=== PATIENT | female | born 1955 | race Caucasian/White ===

== ENCOUNTER 2025-07-25 18:17 | Emergency (ER) | payer MEDICARE, SELFPAY ==
[2025-07-25 18:21] VITALS: BP 182/114
[2025-07-25 19:02] VITALS: BP 154/97
[2025-07-25 19:05] VITALS: BMI 25.1
[2025-07-25 19:53] LABS: Hematocrit 45.5 % (37.0-47.0); Hemoglobin 15.1 g/dL (12.0-16.0); Mean Corp Hgb Conc. 33.2 g/dL (33.0-37.0); Mean Corpuscular Volume 84.7 fL (81.0-99.0); Nucleated Red Blood Cells % 0 %; Platelet Count 210 10^3/uL (130-400); Red Cell Dist. Width 15.7 % (11.5-14.5)
[2025-07-25 20:00] VITALS: BP 154/77
[2025-07-25 20:06] LABS: Urine Character Clear (Clear)
[2025-07-25 20:11] LABS: Urine Squamous Cell >30 /LPF (Few); Urine White Cell 40-50 /HPF (0-5)
[2025-07-25 20:12] LABS: Urine Red Blood Cell 0-2 /HPF (0-2)
[2025-07-25 20:25] LABS: ALT (SGPT) 42 U/L (0-35); AST (SGOT) 42 U/L (14-36); Albumin 4.2 g/dl (3.5-5.0); Alkaline Phosphatase 105 U/L (38-126); Blood Urea Nitrogen 35 mg/dl (7-17); Calcium 9.4 mg/dl (8.4-10.2); Carbon Dioxide 25 mmol/L (22-30); Chloride 110 mmol/L (98-107); Estimated Creatinine Clearance 43 ml/min; Glucose 99 mg/dl (70-99); Potassium 4.5 mmol/L (3.5-5.1); Sodium 142 mmol/L (135-145); Total Protein 7.2 g/dl (6.3-8.2); eGFR 48.09
[2025-07-25 20:30] VITALS: BP 166/85
[2025-07-25 21:01] VITALS: BP 166/87
[2025-07-25] MEDS: COZAAR 25 MG PO (21:07)
--- NOTE | 2025-07-25 21:50 | ED.GENMED ---
History of Present Illness
General
Chief Complaint: Blood Pressure Problem
Source: patient
Exam Limitations: none
Time Seen by Provider: 07/25/25 18:37
Nursing documentation reviewed up to this point in time: agreed with
History of Present Illness
History of Present Illness:
Patient to ED with report of elevated BP readings for the past few days. States she takes Losartan 25mg daily and is complaint with med. 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
150 or above, she should come to ED. States her systolic has been running 160's-170's. She reports that a few years ago she was diagnosed with Stage III kidney disease but that her kidney functions improved and she has not had any issues until
now. SHe reports swelling to bilateral feet. She denies any cp/pressrue, SOB, cough. Brought self to ED for eval.
Past History
Past History
ED Past Medical History: HTN and Other (ANCA Vasculitis)
Review of Systems
Review of Systems
Allergies reviewed?: Yes
All Other Systems: ROS reviewed and negative except as documented in HPI and ROS
Constitutional: Reports no symptoms
EENT: Reports no symptoms
Respiratory: Reports no symptoms
Cardiac: Reports other (Elevated BP readings)
ABD/GI: Reports no symptoms
: Reports no symptoms
Musculoskeletal: Reports edema (+1 edema bilat feet)
Skin: Reports no symptoms
Neurological: Reports no symptoms
Psychiatric: Reports no symptoms
Phy Exam
General Physical Exam
General Presentation: well appearing and no apparent distress
General age: appears stated age
General Skin: warm and dry
General Habitus: normal
General Mental: alert
Cardiovascular Exam
Cardiovascular Exam: regular rate/rhythm
Pulmonary Exam
Pulmonary Exam: lungs clear and no respiratory distress
Neurological Exam
Neurological Exam: oriented x3, CN II-XII intact, no motor deficits and no sensory deficits
Musculoskeletal Exam
Musculoskeletal Exam: full ROM, edema (+1 edema BLe) and neuro vasc intact
Skin Exam
Skin Exam: normal color, warm/dry and no rash
Psychiatric Exam
Psychiatric Exam: normal mood/affect
Course
Orders/Labs/Results
Orders:
Orders
07/25/25 18:48
Electrocardiogram (*1) Urgent
Reason for Study: Fatigue / Weakness
EKG- Treatment ONCE
07/25/25 19:44
Complete Blood Count/With Diff Urgent
Comprehensive Metabolic Panel Urgent
07/25/25 19:59
Urinalysis Reflex To Culture Urgent
Date Specimen was Collected: 07/25/25
Time Specimen was Collected: 19:58
Urine Microscopic Reflex Cult Urgent
Urine Culture Urgent
ADI Source: U
Specimen Description:
Date Specimen was Collected: 07/25/25
Time Specimen was Collected: 19:58
07/25/25 20:50
Losartan [Cozaar] 25 mg PO NOW STA
Abnormal Lab Results
07/25/25 07/25/25
19:44 19:59
WBC 4.0 L 10^3/uL
(4.8-10.8)
RDW 15.7 H %
(11.5-14.5)
Absolute Lymphs (auto) 0.8 L 10^3/uL
(1.2-3.4)
Lymphocytes % 19.4 L %
(20.5-51.1)
Monocytes % 11.9 H %
(1.7-9.3)
Chloride 110 H mmol/L
(98-107)
BUN 35 H mg/dl
(7-17)
Creatinine 1.2 H mg/dL
(0.6-1.0)
AST 42 H U/L
(14-36)
ALT 42 H U/L
(0-35)
Ur Occult Blood Reflex 1+ A
(Negative)
Leukocyte Esterase Rfl 3+ A
(Negative)
Urine WBC (Reflex) 40-50 A /HPF
(0-5)
Urine Bacteria (Reflex) Few A
(Negative)
Urine Albumin (Reflex) 1+ A
(Neg - Trace)
07/25/25 19:44
07/25/25 19:44
Vital Signs
Initial and Last Documented VS:
Initial Vital Signs
Temp Pulse Resp BP Pulse Ox
97.9 F 109 20 182/114 96
07/25/25 18:21 07/25/25 18:21 07/25/25 18:21 07/25/25 18:21 07/25/25 18:21
Last Documented Vital Signs
Temp Pulse Resp BP Pulse Ox
97.9 F 75 21 166/87 96
07/25/25 18:21 07/25/25 21:07 07/25/25 21:01 07/25/25 21:07 07/25/25 18:21
*Radiology
Radiology exam reviewed: radiology read reviewed
*Pulse Oximetry
SaO2: 96
Oxygen Mode of Delivery: Room air
Patient hypoxic: no
*Critical Care Note
Total Time (30-74mins, 75-104mins- exclusive of procedures): Not Applicable
Update Note
Update Note:
BP consistently 150's-160's/80-90. HRR. No chest pain/pressure. Creat 1.2, trace edema bilateral feet. LCTA, pulse ox 98% RA. No prior labs to compare results with. Will request that she increase Losartan to 25mg bid and she is agreeable to
this. SHe will contact her despatch clerk in AM. SHe was given instructions on s/s to return to ED and she is agreeable to plan.
ED Attending Note
-
Portions of this chart may have been created with voice recognition software.� Occasional wrong word or��sound alike� substitutions may have occurred due to the inherent limitations of voice recognition software.
Discharge Plan
Departure
Patient Disposition: Home (Routine Discharge)
Date of Disposition: 07/25/25
Time of Disposition: 20:51
Patient with high blood pressure during this ER visit?: No
Condition: Good
Covid-19: Not Applicable
Discharge Problem:
Elevated blood pressure reading
Instructions: High Blood Pressure (DC)
Prescriptions:
New
losartan 25 mg tablet
25 mg PO BID Qty: 30 0RF
Referrals:
Ubaldo Willams, DO [Family Provider, Internal Medicine] - Tomorrow
Interventions
Interventions:
*Risk Screen - Suicide Last Done: 07/25/25 18:21
*General Assessment Last Done: 07/25/25 18:21
*Neglect/Abuse Screening Last Done: 07/25/25 18:21
*ED- Fall Risk Assessment Last Done: 07/25/25 19:09
*ED COVID-19 Vaccine History Last Done: 07/25/25 19:09
*ED Influenza Vaccine History Last Done: 07/25/25 19:09
*Nursing Disposition Last Done: 07/25/25 21:14
ED- Cardiac Assessment Last Done: 07/25/25 20:01
ED- Neurological Assessment Last Done: 07/25/25 20:05
ED- Pulmonary Assessment Last Done: 07/25/25 20:05
Discharge Date and Time
Discharge Date/Time: 07/25/25 21:15
Print Language: BELGIAN
== END 2025-07-25 21:15 | disposition home or self-care (01) ==
LOC: EMR 18:17
PROVIDERS: Nurse Practitioner; EMERGENCY PHYSICIAN Student in an Organized Health Care Education/Training Program; FAMILY PHYSICIAN Internal Medicine
DX: I10 Essential (primary) hypertension (principal); R60.0 Localized edema; Z79.899 Other long term (current) drug therapy
CPT/HCPCS: 99284; 80053; 81003; 81015; 85025; 87086; 93005